=== PATIENT | male | born 1955 | race Caucasian/White ===

== ENCOUNTER → 2016-09-05 | Outpatient (CLI) | payer BC | END | disposition home or self-care (01) | LOC: PCVCIMAG 08:14 | PROVIDERS: ATTEND Internal Medicine Cardiovascular Disease | DX: I65.23 Occlusion and stenosis of bilateral carotid arteries (principal); I25.10 Atherosclerotic heart disease of native coronary artery without angina pectoris; I10 Essential (primary) hypertension | CPT/HCPCS: 93325; 93351; 93880 ==

== ENCOUNTER → 2017-06-16 | Outpatient (CLI) | payer BC ==
--- NOTE | 2017-06-16 09:37 | PCVCIMAG ---
APPROVED REPORT Laterality: Bilateral Patient Location: Out-Patient Indications Stenosis Risk Factors Hypertension: Hyperlipidemia Diabetes, Doppler Spectral Velocity Analysis PSV / EDVPSV / EDV ECA (R) 155 / 20 cm/sECA (L) 91 / 12 cm/s dICA (R) 65 / 26 cm/sdICA (L) 57 / 19 cm/s Tia (R) 59 / 20 cm/smICA (L) 52 / 19 cm/s pICA (R) 110 / 21 cm/spICA (L) 58 / 19 cm/s Bulb (R) 104 / 25 cm/sBulb (L) 43 / 13 cm/s dCCA (R) 96 / 22 cm/sdCCA (L) 77 / 16 cm/s mCCA (R) 86 / 19 cm/smCCA (L) 78 / 19 cm/s Vert (R) 25 / 6 cm/sVert (L) 42 / 10 cm/s ICA/CCA 1.15 ICA/CCA 0.75 Basic Measurements Blood Pressure: Pulses: Right Left RightLeft Brachial(Sitting) 138/83jcHk737/86mmHgTemporal Real Time B-Mode Imaging Vert. (R)AntegradeVert. (L)Antegrade Findings The right carotid bulb has moderate calcified plaque. The right proximal internal carotid artery shows <40% stenosis. The right common carotid artery shows <40% stenosis. The right external carotid artery shows <50% stenosis. The left carotid bulb has mild plaque. The left proximal internal carotid artery shows no significant stenosis. The left common carotid artery shows no significant stenosis. The left external carotid artery shows no significant stenosis. Conclusion 1. Right common and internal carotid artery stenoses (<40%) 2. Left internal carotid artery plaquing 3. Antegrade vertebral flow
== END | disposition home or self-care (01) ==
LOC: PCVCIMAG 08:55
PROVIDERS: ATTEND Internal Medicine Cardiovascular Disease
DX: I65.23 Occlusion and stenosis of bilateral carotid arteries (principal); E11.9 Type 2 diabetes mellitus without complications; I10 Essential (primary) hypertension; E78.5 Hyperlipidemia, unspecified
CPT/HCPCS: 93880

== ENCOUNTER → 2018-06-01 | Outpatient (CLI) | payer BC ==
--- NOTE | 2018-06-01 11:33 | PCVCIMAG ---
APPROVED REPORT Study performed: 06/01/2018 10:23:10 Exam: Stress Echocardiogram Indication: CAD s/p CABG, Hyperlipidemia, Hypertension Patient Location: Echo lab Stress Nurse: Dhara Tan RN Status: routine Ht: 5 ft 7 in HR: 76 bpm BP: 140/80 mmHg Rhythm: NSR Medical History Medical History: CAD s/p CABG, HOCM, Hyperlipidemia, Diabetes Exercise History: Physically active Procedure The patient underwent an Exercise Stress Test using the Nikko Protocol. Blood pressure, heart rate, and EKG were monitored. An Echocardiogram was performed by aircraft technician in four stages in quad fashion. At peak stress, four selected images were obtained and placed side by side with resting images for comparison. Stress Test Details Stress Test: Exercise stress testing was performed using a Nikko protocol. HR Resting HR: 76 bpmMax Heart Rate (APMHR): 160 bpm Max HR Achieved: 129 bpmTarget HR (85% APMHR): 136 bpm % of APMHR: 80 Recovery HR: 81 bpm HR response to stress: Normal HR response to stress BP Resting BP: 140/80 mmHg Max BP: 184/80 mmHg Recovery BP: 160/74 mmHg BP response to stress: Normal blood pressure response to stress. ECG Resting ECG: Sinus Rhythm Stress ECG: Sinus Rhythm Recovery ECG: Sinus Rhythm Clinical Reason for Termination: Maximal effort Exercise duration: 10 min sec Highest Stage Achieved: Stage 4: 4.2 mph at 16% grade. Exercise capacity: 13.40 METs Overall Exercise Capacity for Age: Normal Pre-Stress Echo The resting Echocardiogram showed normal left ventricular contractility with an estimated Ejection Fraction of about 55-60%. Normal wall motion in all segments on baseline images. Post-Stress Echo The stress Echocardiogram showed normal left ventricular contractility with an estimated Ejection Fraction of about 60-65%. Normal augmentation of wall motion in all segments on post stress images. Clinical No clinical or ECG evidence for ischemia. Conclusion Clinical Response: Non-ischemic Exercise Capacity: Average Stress ECG Response: Non-ischemic Stress Echo Images: Non-ischemic The left ventricle is normal in size and wall thickness in both the rest and stress images. Other Information Study Quality: Good <Conclusion> The left ventricle is normal in size and wall thickness in both the rest and stress images.
== END | disposition home or self-care (01) ==
LOC: PCVCIMAG 10:29
PROVIDERS: ATTEND Family Medicine
DX: I25.10 Atherosclerotic heart disease of native coronary artery without angina pectoris (principal); I42.1 Obstructive hypertrophic cardiomyopathy; I10 Essential (primary) hypertension; E78.2 Mixed hyperlipidemia; E11.9 Type 2 diabetes mellitus without complications; R06.09 Other forms of dyspnea; Z95.1 Presence of aortocoronary bypass graft
CPT/HCPCS: 93325; 93351

== ENCOUNTER → 2019-05-03 | Outpatient (CLI) | payer BC ==
--- NOTE | 2019-05-03 15:37 | PCVCIMAG ---
EXAM: BILATERAL CAROTID DUPLEX INDICATION: Carotid Occlusive Disease. FINDINGS: Doppler Measurements (centimeters per second): RIGHT: Peak CCA-91, Peak ECA-173, Diastolic ICA-25, Peak ICA-137, ICA/CCA Ratio-1.5. LEFT: Peak CCA-100, Peak ECA-177, Diastolic ICA-28, Peak ICA-80, ICA/CCA Ratio-0.8. RIGHT CAROTID: The carotid bulb has moderate plaque. The proximal internal carotid artery shows 40-50% stenosis. The common carotid artery shows no significant stenosis. The external carotid artery shows 60% stenosis. LEFT CAROTID: The carotid bulb has mild plaque. The proximal internal carotid artery shows <40% stenosis. The common carotid artery shows no significant stenosis. The external carotid artery shows no significant stenosis. Antegrade flow in both vertebral arteries. IMPRESSION: 40-50% stenosis of the right internal carotid artery with moderate plaque. <40% stenosis of the left internal carotid artery with mild plaque. LOC:[place] [id number]
--- NOTE | 2019-05-03 17:35 | PCVCIMAG ---
APPROVED REPORT Study performed: 05/03/2019 15:50:28 Exam: Stress Echocardiogram Indication: CAD s/p CABG, Hypertension, Chest pressure Patient Location: Echo lab Stress Nurse: Dhara Tan RN Room #: 2 Status: routine Ht: 5 ft 7 in HR: 77 bpm BP: 140/86 mmHg Rhythm: NSR Medical History Medical History: CAD s/p CABG, HTN, Diabetes Cardiac Risk Factors: HTN, Hyperlipidemia, DM Previous Cardiac Procedures: CABG Pretest Chest Pain Characteristics: No chest pain Exercise History: Physically active Procedure The patient underwent an Exercise Stress Test using the Nikko Protocol. Blood pressure, heart rate, and EKG were monitored. An Echocardiogram was performed by biomedical equipment technician in four stages in quad fashion. At peak stress, four selected images were obtained and placed side by side with resting images for comparison. Stress Test Details Stress Test: Exercise stress testing was performed using a Nikko protocol. HR Resting HR: 77 bpmMax Heart Rate (APMHR): 159 bpm Max HR Achieved: 148 bpmTarget HR (85% APMHR): 135 bpm % of APMHR: 93 Recovery HR: 90 bpm HR response to stress: Normal HR response to stress BP Resting BP: 140/86 mmHg Max BP: 194/88 mmHg Recovery BP: 166/88 mmHg BP response to stress: Normal blood pressure response to stress. ECG Resting ECG: Sinus Rhythm, NSSTT changes Stress ECG: Sinus Rhythm, ST-T abnormalities ST Change: Downsloping ST depression Maximum ST Deviation: 3.10 mm Arrhythmia: PVCs,PACs- frequent Recovery ECG: Sinus Rhythm Recovery ST Change: Ischemic Recovery ST Deviation: -2.55 mm Recovery Arrhythmia: PVCs, PACs- frequent Clinical Reason for Termination: Maximal effort Stress Symptoms: fatigue,arzate pain Exercise duration: 9 min 56 sec Highest Stage Achieved: Stage 4: 4.2 mph at 16% grade. Exercise capacity: 13.4 METs Overall Exercise Capacity for Age: Good Scale: Active Angina Score: None No complications. Stress ECG Conclusion White Treadmill Score is -6.5 which is Moderate risk. Pre-Stress Echo The resting Echocardiogram showed normal left ventricular contractility with an estimated Ejection Fraction of about 55-60%. Post-Stress Echo The stress Echocardiogram showed abnormal left ventricular contractility with an estimated Ejection Fraction of about 60-65%. The stress Echocardiogram demonstrated wall motion abnormality in the mid-distal septal hypokinesis,distal anterior hypokinesis, inferior hypokinesis . Conclusion Clinical Response: Non-ischemic Exercise Capacity: Average Stress ECG Response: Ischemic Stress Echo Images: Ischemic Abnormal stress echo test. Cardiac catheterization is recommended. Normal color doppler. No regurgitation or stenosis present on pulmonic, mitral, tricuspid and aortic valves. <Conclusion> Abnormal stress echo test. Cardiac catheterization is recommended. Normal color doppler. No regurgitation or stenosis present on pulmonic, mitral, tricuspid and aortic valves.
== END | disposition home or self-care (01) ==
LOC: PCVCIMAG 14:55
PROVIDERS: ATTEND Internal Medicine Cardiovascular Disease
DX: I65.23 Occlusion and stenosis of bilateral carotid arteries (principal); I25.10 Atherosclerotic heart disease of native coronary artery without angina pectoris; R07.89 Other chest pain; I10 Essential (primary) hypertension; R06.02 Shortness of breath; R94.39 Abnormal result of other cardiovascular function study; E78.2 Mixed hyperlipidemia; E11.9 Type 2 diabetes mellitus without complications; Z95.1 Presence of aortocoronary bypass graft; Z79.4 Long term (current) use of insulin; Z72.89 Other problems related to lifestyle; Z79.82 Long term (current) use of aspirin; Z79.899 Other long term (current) drug therapy
CPT/HCPCS: 93325; 93351; 93880